=== PATIENT | female | born 1965 | race Caucasian/White ===

== ENCOUNTER → 2018-01-15 | Outpatient (CLI) | payer OTHER | END | disposition home or self-care (01) | LOC: KCIC MAMMO 14:12 | DX: Z12.31 Encounter for screening mammogram for malignant neoplasm of breast (principal) | CPT/HCPCS: 77067 ==

== ENCOUNTER → 2018-01-21 | Outpatient (CLI) | payer OTHER | END | disposition home or self-care (01) | LOC: KCIC US 12:51 | DX: N63.20 Unspecified lump in the left breast, unspecified quadrant (principal) | CPT/HCPCS: 76641 ==

== ENCOUNTER 2019-04-18 23:34 | Emergency (ER) | payer OTHER ==
[~2019-04-18] VITALS: Ht 170.2 cm; Wt 71.7 kg
[~2019-04-18 23:34] MED LIST: ACET1TAB33 PO; AMLO5TAB4 PO; ASPI81TA50 PO; BACL10TA PO; DICL1TAB2 PO; DULO60CA6 PO; MORP15TA PO; OMEP20CA10 PO; OXAP600T2 PO; RANI150T2 PO; TOPI200T6 PO
[2019-04-19] MEDS ORDERED: ASPIRIN 325 MG TABLET PO ONE (01:30)
[2019-04-19 01:34] LABS: BASO % 0 % (0-3); EOS % 1 % (0-3); HEMOGLOBIN 13.8 g/dL (12.0-15.5); LYMPH # 2.1 x10^3/uL (1.0-4.8); LYMPH % 30 % (24-48); MEAN CORPUSCULAR HEMOGLOBIN 32 pg (25-35); MEAN CORPUSCULAR HGB CONC 35 g/dL (31-37); MEAN CORPUSCULAR VOLUME 94 fL (79-100); MONO # 0.6 x10^3/uL (0.0-1.1); MONO % 8 % (0-9); NEUT # 4.3 x10^3/uL (1.8-7.7); NEUT % 61 % (31-73); PLATELET COUNT 243 x10^3/uL (140-400); RED BLOOD COUNT 4.28 x10^6/uL (3.50-5.40); RED CELL DISTRIBUTION WIDTH 12.8 % (11.5-14.5); WHITE BLOOD COUNT 7.1 x10^3/uL (4.0-11.0)
[2019-04-19 01:43] LABS: CALCIUM 9.1 mg/dL (8.5-10.1); CREATININE 0.7 mg/dL (0.6-1.0); GFR 86.9; PROTHROMBIN TIME PATIENT 12.5 SEC (11.7-14.0)
[2019-04-19 01:49] LABS: ALBUMIN/GLOBULIN RATIO 1.1 (1.0-1.7); MAGNESIUM 1.8 mg/dL (1.8-2.4); TOTAL BILIRUBIN 0.5 mg/dL (0.2-1.0); TOTAL PROTEIN 7.5 g/dL (6.4-8.2)
[2019-04-19] MEDS ORDERED: IV NORMAL SALINE 1000ML BAG 1,000 ML IV ONE (03:00)
[2019-04-19] MEDS ORDERED: DEXAMETHASONE SOD PHOS 20 MG/5 ML VIAL. IV ONE (03:00)
[2019-04-19] MEDS ORDERED: KETOROLAC 15 MG/ML VIAL. IV ONE (03:00)
--- NOTE | 2019-04-19 03:14 | PHYS DOC ---
Past Medical History Past Medical History: Pneumonia Additional Past Surgical Histo: PARTIAL HYSTERECTOMY, LUMPECTOMY LEFT BREAST Alcohol Use: Occasionally Drug Use: None Adult General Chief Complaint Chief Complaint: CHEST PAIN HPI HPI Patient is a 53 year old female who presents with chest pain. Pt reports having her current chest pain for about a week. The pain has progressively got worse and after having a syncope episode with LOC at work last night around 11pm. She decided to get it checked out. Pt endorses the pain being sharp, pleuritic, 10/10 for pain with no radiation. Her chest pain is not reproducible with palpation. She also has some URI symptoms with coughing, productive sputum and nasal congestion during this past week. She reports this episode is similar to her PNA that she had about a year ago which resulted in her being admitted to our hospital. 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 Pt also has MICHAELS, N/V. Denies any recent travel, unilateral leg pain. Review of Systems Review of Systems Constitutional: Denies fever or chills Eyes: Denies redness or eye pain HENT: Denies nasal congestion or sore throat Respiratory: Positive cough or shortness of breath Cardiovascular: Positive chest pain. No palpitations GI: Denies abdominal pain. Positive nausea, or vomiting : Denies dysuria or hematuria. Musculoskeletal: Denies back pain or joint pain Integument: Denies rash or skin lesions Neurologic: Positive headache, no focal weakness or sensory changes Complete systems were reviewed and found to be within normal limits, except as documented in this note. Current Medications Current Medications Current Medications Medications (Trade) Dose Ordered Sig/Kristen Start Time Stop Time Status Last Admin Dose Admin Aspirin (Meche Aspirin) 325 mg 1X ONCE 04/19/19 01:30 04/19/19 01:31 DC 04/19/19 01:53 325 MG Dexamethasone Sodium Phosphate (Decadron) 10 mg 1X ONCE 04/19/19 03:00 04/19/19 03:01 DC 04/19/19 02:51 10 MG Ketorolac Tromethamine (Toradol 15mg Vial) 15 mg 1X ONCE 04/19/19 03:00 04/19/19 03:01 DC 04/19/19 02:51 15 MG Sodium Chloride 1,000 ml @ 1,000 mls/hr 1X ONCE 04/19/19 03:00 04/19/19 03:59 DC 04/19/19 02:51 1,000 MLS/HR Allergies Allergies Allergies Coded Allergies Type Severity Reaction Last Updated Verified No Known Drug Allergies 02/27/15 No Physical Exam Physical Exam Constitutional: Well developed, well nourished, no acute distress, non-toxic appearance HENT: Normocephalic, atraumatic, oropharynx moist Eyes: PERRL, EOMI, conjunctiva normal, no discharge Neck: Normal range of motion, no tenderness, supple Cardiovascular: Heart rate normal, regular rhythm Lungs & Thorax: Bilateral breath sounds clear to auscultation, no wheezing Abdomen: Soft, no tenderness Skin: Warm, dry, no erythema, no rash Back: No tenderness, no CVA tenderness Extremities: No tenderness, ROM intact, no edema Neurologic: Alert and oriented X 3, normal motor function, normal sensory function, no focal deficits noted Psychologic: Affect normal, judgement normal, mood normal Current Patient Data Vital Signs Vital Signs Date Time Temp Pulse Resp B/P (MAP) Pulse Ox O2 Delivery O2 Flow Rate FiO2 04/19/19 03:44 82 20 176/96 (122) 98 Room Air 04/19/19 01:10 98.1 98.1 Lab Values Laboratory Tests Test 04/19/19 01:25 04/19/19 02:55 White Blood Count 7.1 x10^3/uL (4.0-11.0) Red Blood Count 4.28 x10^6/uL (3.50-5.40) Hemoglobin 13.8 g/dL (12.0-15.5) Hematocrit 40.0 % (36.0-47.0) Mean Corpuscular Volume 94 fL (79-100) Mean Corpuscular Hemoglobin 32 pg (25-35) Mean Corpuscular Hemoglobin Concent 35 g/dL (31-37) Red Cell Distribution Width 12.8 % (11.5-14.5) Platelet Count 243 x10^3/uL (140-400) Neutrophils (%) (Auto) 61 % (31-73) Lymphocytes (%) (Auto) 30 % (24-48) Monocytes (%) (Auto) 8 % (0-9) Eosinophils (%) (Auto) 1 % (0-3) Basophils (%) (Auto) 0 % (0-3) Neutrophils # (Auto) 4.3 x10^3/uL (1.8-7.7) Lymphocytes # (Auto) 2.1 x10^3/uL (1.0-4.8) Monocytes # (Auto) 0.6 x10^3/uL (0.0-1.1) Eosinophils # (Auto) 0.0 x10^3/uL (0.0-0.7) Basophils # (Auto) 0.0 x10^3/uL (0.0-0.2) Prothrombin Time 12.5 SEC (11.7-14.0) Prothrombin Time INR 1.0 (0.8-1.1) D-Dimer (Mar[place]ell) 0.47 ug/mlFEU (0.00-0.50) Sodium Level 141 mmol/L (136-145) Potassium Level 4.0 mmol/L (3.5-5.1) Chloride Level 102 mmol/L (98-107) Carbon Dioxide Level 28 mmol/L (21-32) Anion Gap 11 (6-14) Blood Urea Nitrogen 17 mg/dL (7-20) Creatinine 0.7 mg/dL (0.6-1.0) Estimated GFR (Cockcroft-Gault) 86.9 BUN/Creatinine Ratio 24 (6-20) H Glucose Level 111 mg/dL (70-99) H Lactic Acid Level 0.9 mmol/L (0.4-2.0) Calcium Level 9.1 mg/dL (8.5-10.1) Magnesium Level 1.8 mg/dL (1.8-2.4) Total Bilirubin 0.5 mg/dL (0.2-1.0) Aspartate Amino Transferase (AST) 31 U/L (15-37) Alanine Aminotransferase (ALT) 26 U/L (14-59) Alkaline Phosphatase 101 U/L (46-116) Creatine Kinase 106 U/L (26-192) Creatine Kinase MB (Mass) 1.3 ng/mL (0.0-3.6) Creatine Kinase MB Relative Index 1.2 % (0-4) Troponin I Quantitative < 0.017 ng/mL (0.000-0.055) < 0.017 ng/mL (0.000-0.055) VF-Vfd-D-Type Natriuretic Peptide 83 pg/mL (0-124) Total Protein 7.5 g/dL (6.4-8.2) Albumin 4.0 g/dL (3.4-5.0) Albumin/Globulin Ratio 1.1 (1.0-1.7) Lipase 134 U/L (73-393) Laboratory Tests 04/19/19 01:25 Laboratory Tests 04/19/19 01:25 EKG EKG @2340 NSR at 74bpm, NO ST elevation Radiology/Procedures Radiology/Procedures [] Course & Med Decision Making Course & Med Decision Making Pertinent Labs and Imaging studies reviewed. (See chart for details) [] Dragon Disclaimer Dragon Disclaimer This electronic medical record was generated, in whole or in part, using a voice recognition dictation system. Departure Departure Impression: Primary Impression: Chest pain Additional Impression: Pleurisy Disposition: HOME, SELF-CARE Condition: STABLE Referrals: JUANY BARON MD (PCP) Patient Instructions: Chest Pain (Nonspecific), [id number], Pleurisy, Nlvs-qq-Rcke Scripts Hydrocodone/Apap 5-325 (NORCO 5-325 TABLET) 1 Each Tablet 0.5-1 TAB PO PRN Q6HRS PRN for PAIN, #10 TAB 0 Refills Prov: EUGENE RIZVI DO 04/19/19 Prednisone (PREDNISONE) 20 Mg Tablet 2 TAB PO DAILY, #8 TAB Prov: EUGENE RIZVI DO 04/19/19 Albuterol Sulfate (Proair Hfa) 8.5 Gm Hfa.aer.ad 1 PUFF INH PRN Q6HRS PRN for SHORTNESS OF BREATH, #1 INHALER Prov: EUGENE RIZVI DO 04/19/19 Problem Qualifiers Primary Impression: Chest pain Chest pain type: unspecified Qualified Codes: R07.9 - Chest pain, unspecified EUGENE RIZVI DO Apr 19, 2019 03:14
[2019-04-19 03:44] VITALS: BP 176/96
[2019-04-19] MEDS ORDERED: ALBU2.5V8 INH (04:10)
[2019-04-19] MEDS ORDERED: PRED20TA PO (04:10)
[2019-04-19] MEDS ORDERED: HYDR-3164 PO (04:22)
--- NOTE | 2019-04-19 06:29 | RAD ---
PA and lateral chest. HISTORY: Dyspnea PA and lateral views were taken of the chest. Lungs are clear. Heart is normal in size without heart failure. There is no pleural effusion. IMPRESSION: 1. No acute infiltrates. Electronically signed by: Tito Mayo MD (04/19/2019 6:26 AM) [id number]
--- NOTE | 2019-04-19 06:43 | EKG ---
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
== END 2019-04-19 04:30 | disposition home or self-care (01) ==
LOC: ER 23:34
DX: R09.1 Pleurisy (principal); Z90.710 Acquired absence of both cervix and uterus; Z79.82 Long term (current) use of aspirin
CPT/HCPCS: 36415; 71046; 80053; 82553; 83605; 83690; 83735; 83880; 84484; 85025; 85379; 85610; 93005; 96361; 96374; 96375; 99285; J1100; J1885; J7030